=== PATIENT | male | born 1990 | race Caucasian/White ===

== ENCOUNTER 2018-10-18 17:09 | Emergency (ER) | payer BC ==
[~2018-10-18] VITALS: Ht 170.2 cm; Wt 87.0 kg
[2018-10-18] MEDS ORDERED: SODIUM CHLORIDE 0.9% 1,000 ML IV ONE (19:02)
[2018-10-18] MEDS ORDERED: PROPOFOL 200MG/20ML VIAL IV ONE (19:15)
[2018-10-18] MEDS ORDERED: MORPHINE SULFATE 4 MG/ML CPJ (NOT FOR IM USE) IV ONE (19:15)
[2018-10-18] MEDS ORDERED: ONDANSETRON HCL 4MG/2ML INJ IV ONE (19:15)
[2018-10-18] MEDS ORDERED: MORPHINE SULFATE 10 MG/ML CPJ IV ONE (20:00)
[2018-10-18] MEDS ORDERED: FENTANYL CITRATE/PF 50MCG/ML 2ML VIAL IV ONE (22:15)
[2018-10-19] MEDS ORDERED: HYDROCODONE/ACETAMINOPHEN 10/325MG TABLET PO ONE (00:15)
[2018-10-19 00:28] VITALS: BP 118/76
== END 2018-10-19 00:31 | disposition home or self-care (01) ==
LOC: ER 17:09
DX: S62.022A Displaced fracture of middle third of navicular [scaphoid] bone of left wrist, initial encounter for closed fracture (principal); S52.122A Displaced fracture of head of left radius, initial encounter for closed fracture; S96.912A Strain of unspecified muscle and tendon at ankle and foot level, left foot, initial encounter; W18.39XA Other fall on same level, initial encounter; Y93.89 Activity, other specified; Y92.89 Other specified places as the place of occurrence of the external cause; Y99.8 Other external cause status
CPT/HCPCS: 29105; 73060; 73080; 73090; 73130; 73610; 73630; 73700; 96374; 96375; 99284; J2270; J2405; J3010; J7030; J2704